=== PATIENT | female | born 1965 | race Caucasian/White ===

== ENCOUNTER 2020-09-16 23:39 | Emergency (ER) | payer MEDICAID ==
--- NOTE | 2020-09-16 23:55 | EDM.PDOC ---
ED HPI GENERAL MEDICAL PROBLEM - General Stated Complaint: FELL, HIT HEAD Time Seen by Provider: 09/16/20 23:40 Source of Information: Reports: Patient, EMS History Limitations: Reports: Intoxication - History of Present Illness INITIAL COMMENTS - FREE TEXT/NARRATIVE: brought in by EMS was at bar , fell and landed backward and hit the back of her head on a cupboard, Had brief LOC and sustained a laceration to the occipital region no Nausea or vomiting noted no Upper or lower extremity weakness noted pt is intoxicated with pin point pupils ED ROS GENERAL - Review of Systems Review Of Systems: See Below Constitutional: Reports: No Symptoms HEENT: Reports: No Symptoms, Vertigo Respiratory: Reports: No Symptoms Cardiovascular: Reports: No Symptoms Endocrine: Reports: No Symptoms Musculoskeletal: Reports: No Symptoms. Denies: Neck Pain Skin: Reports: No Symptoms Neurological: Reports: Headache. Denies: Confusion, Dizziness, Paresthesia, Seizure, Syncope, Trouble Speaking, Weakness, Change in Speech, Gait Disturbance Psychiatric: Reports: No Symptoms Hematologic/Lymphatic: Reports: No Symptoms ED EXAM, HEAD INJURY - Physical Exam Exam: See Below Exam Limited By: Intoxication General Appearance: Alert, WD/WN, No Apparent Distress Head: Normocephalic, Scalp Lacerations, Scalp Tenderness. No: Scalp Swelling, Scalp Abrasions, Scalp Hematoma, Active Bleeding, Hernandez's Sign, Facial Abrasions, Facial Ecchymosis, Facial Lacerations, Facial Swelling, Sinus Tenderness, Facial Tenderness, Raccoon Eyes Nexus Criteria: Evidence of Intoxication. No: Posterior, Midline Cervical Tenderness, Altered Level of Consciousness, Focal Neurological Deficit, Painful Distraction Injuries Eyes: Bilateral Eye: EOMI Ears: Normal External Exam Nose: Normal Inspection Throat/Mouth: Normal Oropharynx Respiratory: No Respiratory Distress, Lungs Clear Cardiovascular: Normal Peripheral Pulses, Regular Rate, Rhythm GI/Abdominal Exam: Soft, Non-Tender Extremities: Normal Inspection, Normal Range of Motion, Non-Tender Neurologic: No Motor/Sensory Deficits, Alert, Normal Mood/Affect, Oriented x 3 - Lolo Coma Score Best Eye Response (Martin): (4) Open Spontaneously Best Verbal Response (Lolo): (5) Oriented Best Motor Response (Martin): (6) Obeys Commands ED LACERATION/WOUND & MILANA PROC - Laceration/Wound Repair Occipital Head Lac/wound length in cm: 4 Appearance: Superficial, Linear, Clean Skin Prep: Chlorhexidine (Hibiciens), Saline Saline irrigation (cc's): 5 Exploration/Debridement/Repair: Wound Explored, In a Bloodless Field, No Foreign Material Found Closed with: Kimani (8) # of Sutures: 8 Drain Placement: No Sterile Dressing Applied: None Tetanus Status Addressed: Yes Complications: No Course - Orders/Labs/Meds Orders: Active Orders 24 hr Category Date Time Status Vaccines to be Administered [RC] PER UNIT ROUTINE Care 09/17/20 00:35 Active Head wo Cont [CT] Stat Exams 09/16/20 23:50 Taken Labs: Laboratory Tests 09/17/20 09/17/20 09/17/20 Range/Units 00:10 00:10 00:10 WBC 6.7 (4.5-12.0) X10-3/uL RBC 4.66 (3.23-5.20) x10(6)uL Hgb 12.9 (11.5-15.5) g/dL Hct 40.0 (30.0-51.3) % MCV 86.0 (80-96) fL MCH 27.8 (27.7-33.6) pg MCHC 32.3 (32.2-35.4) g/dL RDW 15.1 (11.5-15.5) % Plt Count 399 H (125-369) X10(3)uL Sodium 142 (135-145) mmol/L Potassium 3.2 L (3.5-5.3) mmol/L Chloride 104 (100-110) mmol/L Carbon Dioxide 24 (21-32) mmol/L BUN 9 (7-18) mg/dL Creatinine 1.0 (0.55-1.02) mg/dL Est Cr Clr Drug Dosing TNP Estimated GFR (MDRD) 58 L (>60) BUN/Creatinine Ratio 9.0 (9-20) Glucose 111 (80-116) mg/dL Calcium 8.6 (8.6-10.2) mg/dL Ethyl Alcohol 0.10 H (<0.03) % Meds: Medications Discontinued Medications Generic Name Dose Route Start Last Admin Trade Name Freq PRN Reason Stop Dose Admin Acetaminophen 1,000 mg 09/17/20 00:34 09/17/20 01:23 Tylenol Extra Strength PO 09/17/20 00:35 1,000 mg ONETIME ONE Administration Diphtheria/Tetanus/Acell Pertussis 0.5 ml 09/17/20 00:35 09/17/20 01:24 Boostrix IM 09/17/20 00:36 0.5 ml .ONCE ONE Administration - Re-Assessments/Exams Free Text/Narrative Re-Assessment/Exam: 09/17/20 01:[address] done for pt Pt had laceration on the scalp cleaned and kimani applied #8 Pt tolerated this well Tetanus vaccine also given Departure - Departure Time of Disposition: 01:30 Disposition: Home, Self-Care 01 Condition: Fair Clinical Impression: Head injury due to trauma, Laceration of scalp without complication - Discharge Information *PRESCRIPTION DRUG MONITORING PROGRAM REVIEWED*: Not Applicable *COPY OF PRESCRIPTION DRUG MONITORING REPORT IN PATIENT CARMEL: Not Applicable Instructions: Sutures, [place], or Adhesive Wound Closure, [id number] Referrals: Hitesh Crow MD [Primary Care Provider] - Additional Instructions: 1) Monitor for any signs of worsening head injury: headache ,nausea, vomiting dizziness and return to ER for evaluation 2)Kimani removal after 10 days 3) Make appointment to see your doctor this week for follow up about head injury 4) Call with any concerns - My Orders Last 24 Hours: My Active Orders 09/16/20 23:50 Head wo Cont [CT] Stat 09/17/20 00:35 Vaccines to be Administered [RC] PER UNIT ROUTINE - Assessment/Plan Last 24 Hours: My Active Orders 09/16/20 23:50 Head wo Cont [CT] Stat 09/17/20 00:35 Vaccines to be Administered [RC] PER UNIT ROUTINE
[2020-09-17] MEDS ORDERED: Acetaminophen 500 MG Tab PO ONE (00:34)
[2020-09-17] MEDS ORDERED: Diphtheria,Pertussis(Acell),Tetanus Vaccine 0.5 ML Syringe IM ONE (00:35)
== END 2020-09-17 01:35 | disposition home or self-care (01) ==
LOC: FB.ED 23:39
DX: S01.01XA Laceration without foreign body of scalp, initial encounter (principal); Z23 Encounter for immunization; W01.198A Fall on same level from slipping, tripping and stumbling with subsequent striking against other object, initial encounter; Y92.89 Other specified places as the place of occurrence of the external cause
CPT/HCPCS: 12002; 36415; 70450; 80048; 80307; 85027; 90471; 90715; 99284; A9270; 99282